=== PATIENT | female | born 1995 | race Caucasian/White ===

== ENCOUNTER 2018-06-07 21:54 | Emergency (ER) | payer BC ==
[2018-06-07] MEDS ORDERED: predniSONE 20 MG TAB PO ONE (22:30)
[2018-06-07] MEDS ORDERED: FAMOTIDINE 20 MG TAB PO ONE (22:30)
[2018-06-07] MEDS ORDERED: diphenhydrAMINE 25 MG CAP PO ONE (22:30)
[2018-06-07 23:24] VITALS: BP 110/72
--- NOTE | 2018-06-07 23:26 | EDPHY ---
General Time Seen by Provider: 06/07/18 22:14 Narrative: CLINICAL IMPRESSION: Mild allergic reaction ASSESSMENT/PLAN: 22-year-old female presents to the emergency department with a possible mild allergic reaction to her antidepressant. However, patient has been on this medication for at least 1 year and reports intermittent hives and itching over the last 3-6 months. She has had an allergy workup that was negative. She arrives this evening with a slightly swollen upper lip and subjective left- sided throat tightness but has no clinical signs of tonsillar hypertrophy, uvulitis, or upper airway compromise, tongue swelling, and is tolerating secretions well. Vital signs stable, no hypoxia or respiratory distress. Patient took 1 Benadryl earlier this evening. She was given additional Benadryl , prednisone, and H2 blockers with some improvement in her symptoms. No clinical suspicion of anaphylaxis or need for IM epinephrine. I have recommended patient contact her primary prescriber to discuss her Pristiq as well as her topographical engineer. Monitor symptoms at home, supportive care discussed, warning signs return to ED outlined discharge. DIFFERENTIAL DX: Differential includes but not limited to anaphylaxis, mild allergic reaction, urticaria, SJS, TEN ED PROCEDURES: See lab and/or imaging results below ED COURSE: 11:20 p.m.: Patient reassessed, feeling a little better, not feeling worse, continues to tolerate secretions well, vital signs remained stable, no hypoxia CHIEF COMPLAINT: Itching, possible allergic reaction HPI: 22-year-old female with a history of depression, on Pristiq, presents to the emergency department with complaints of itching, upper lip swelling, and left throat tightness for the last several hours. Patient has been taking Pristiq for 1 year and is tolerating this well. She admits that her pills look slightly different from a recent prescription refill. She reports having intermittent itching and hives over the last 3-6 months, typically controlled well with Benadryl. She did see a topographical engineer several months ago and reportedly had a negative workup. She denies any other new foods, contacts, lotions, detergents, facial wash or anything that could have caused her to react. She took 1 Benadryl earlier today and did not notice improvement in her symptoms which is what brought her to the ED. No personal or family history of anaphylaxis. She takes no other medications. She was taking vitamins but was advised by her topographical engineer to quit these. She reports no chest tightness, shortness of breath, difficulty breathing. PAST MEDICAL HISTORY: Depression See triage summary and nurse notes for addition applicable history Pertinent Past Surgical History: None reported Family History: Noncontributory Social History: Otherwise healthy REVIEW OF SYSTEMS: A full 10 point review of systems was negative except for those mentioned in HPI. PHYSICAL EXAM: General Appearance: Alert, oriented, appropriate, cooperative, NAD, well hydrated, non-toxic appearing, VSS, no hypoxia. HEENT: TMs are clear bilaterally no perforation or FB, no injection, no evidence of serous or mucopurulent otitis. Oropharynx clear is no erythema or exudates, no tonsillar hypertrophy or asymmetry. Dentition without abnormality. No evidence of uvulitis. Tonsils 2+ bilaterally, no asymmetry. Tolerating secretions well Eyes: PERRLA, no acute vision change, nystagmus, swelling, discharge, pain or photosensitivity. Conjunctiva pink, no pallor or injection Neck: Supple, nontender, no lymphadenopathy, no midline pain, FROM, no meningismus. Respiratory: There are no retractions, lungs are clear to auscultation. Cardiac: Regular rate and rhythm, no murmurs or gallops. Gastrointestinal: Abdomen is soft, nontender, bowel sounds normal, no masses/ hernia, no rigidity, guarding or focal peritoneal findings. Skin: Faint, erythematous, flat macular lesions to the left volar forearm and right upper back. No blistering lesions. No intraoral lesions or ocular lesions. MEDICAL DECISION MAKING: Patient was seen independently. Secondary supervising physician at time of evaluation was: Dr. MacDade. Diagnosis: Mild urticaria. New, requires workup Summary: See Assessment and Plan for summary of ED visit Patient Progress: Improved. - History Smoking Status: Never smoked - Objective Vital Signs: Initial Vital Signs Temperature (C) 36.7 C 06/07/18 21:59 Heart Rate 82 06/07/18 21:59 Respiratory Rate 17 06/07/18 21:59 Blood Pressure 112/76 06/07/18 21:59 O2 Sat (%) 98 06/07/18 21:59 O2 Delivery Mode Room Air Allergies/Adverse Reactions: No Known Allergies Allergy (Unverified 06/07/18 21:58) Home Medications: Medication Instructions Recorded Desvenlafaxine 06/07/18 predniSONE [Prednisone] 40 mg PO DAILY #12 tablet 06/07/18 Medications Given: Discontinued Medications Diphenhydramine HCl (Benadryl) 25 mg PO EDNOW ONE Stop: 06/07/18 22:31 Last Admin: 06/07/18 22:40 Dose: 25 mg Famotidine (Pepcid) 40 mg PO EDNOW ONE Stop: 06/07/18 22:31 Last Admin: 06/07/18 22:40 Dose: 40 mg Prednisone (Prednisone) 40 mg PO EDNOW ONE Stop: 06/07/18 22:31 Last Admin: 06/07/18 22:40 Dose: 40 mg Departure - Departure Disposition: Home, Routine, Self-Care Clinical Impression: Urticaria Condition: Good Instructions: Urticaria (ED) Additional Instructions: DISCHARGE INSTRUCTIONS FROM YOUR DOCTOR Thank you for visiting our emergency department today. You were treated by a physician shipping and receiving assistant today and your case was reviewed with our ED Attending physician. Please keep in mind that discharge from the emergency department does not mean that there is nothing wrong - it simply means that we have not identified an emergency condition that requires further evaluation or treatment in the hospital. You should always plan to follow up with primary care for re- evaluation of your condition in the next 2-3 days. If you have been referred to a specialist, please call as soon as possible (today or tomorrow) to schedule your follow up appointment at the appropriate time. PLEASE FOLLOW-UP WITH YOUR PRIMARY PRESCRIBER OF YOUR ANTIDEPRESSANT WELL HER BUSPERSON. YOU HAVE NO SIGNS OF ANAPHYLACTIC REACTION TONIGHT. AT HOME, YOU CAN CONSIDER USING TAMMIE DURING THE DAY, BENADRYL AT NIGHT, AND EITHER PEPCID AC OR ZANTAC. WE GAVE YOU A SMALL TAPER OF STEROIDS TO FILL AT THE PHARMACY TOMORROW. PLEASE RETURN TO THE EMERGENCY DEPARTMENT FOR INCREASED SWELLING, DIFFICULTY SWALLOWING HER OWN SALIVA, THROAT TIGHTENING OR CLOSING, DIFFICULTY BREATHING, CHEST PAIN OR ANY OTHER CONCERNS. People present with illnesses and injuries in different ways, and it is always possible that we have missed something. You may always return for re-evaluation if symptoms worsen or if they are not improving or if you develop new/different symptoms. Again, thank you for choosing our emergency department. We hope that you feel better. Referrals: JONATHON GRANGER [Other] - As per Instructions Prescriptions: predniSONE [Prednisone] 40 mg PO DAILY #12 tablet
== END 2018-06-07 23:39 | disposition home or self-care (01) ==
DX: L50.9 Urticaria, unspecified (principal); T43.205A Adverse effect of unspecified antidepressants, initial encounter; F32.9 Major depressive disorder, single episode, unspecified; Z79.899 Other long term (current) drug therapy
CPT/HCPCS: J7512